=== PATIENT | female | born 1980 | race Caucasian/White ===

== ENCOUNTER 2025-05-07 06:00 | Day surgery (SDC) | payer OTHER ==
[2025-04-30 13:24] VITALS: BP 112/74
[~2025-05-07] VITALS: Ht 157.5 cm; Wt 64.0 kg
[~2025-05-07 06:00] MED LIST: B12 ACTIVE1000 MCG PO; CRESTOR40 MG PO; EMGALITY S120 MG/1 M SQ; KEVZARA200 MG/1.1; NEXIUM10 MG PO; NEXIUM40 M1 PO; PERCOCET 5/3251 TAB PO; RECTICARE30 GM TP; SINGULAIR10 MG PO; SULCRAFATE PO; ZYRTEC10 M3
[2025-05-07] MEDS ORDERED: CEFAZOLIN SODIUM 1,000 MG VIAL ONE (08:10)
[2025-05-07] MEDS ORDERED: POVIDONE-IODINE 118 ML BOTT TOP ONE (08:13)
[2025-05-07] MEDS ORDERED: CIPROFLOXACIN HCL 0.175 MG/DR DROPS OP ONE (09:00)
[2025-05-07] MEDS ORDERED: LIDOCAINE HCL 1%/EPINEPHRINE 20ML VIAL IJ ONE (09:00)
[2025-05-07] MEDS ORDERED: CIPROFLOXACIN2.5 ML OTIC (09:51)
[2025-05-07] MEDS ORDERED: CEPHALEXIN500 MG PO (09:52)
== END 2025-05-07 11:50 | disposition home or self-care (01) ==
LOC: CIR.AMB 06:00
PROVIDERS: ATTEND Otolaryngology Otology & Neurotology
DX: H80.92 Unspecified otosclerosis, left ear (principal); H90.12 Conductive hearing loss, unilateral, left ear, with unrestricted hearing on the contralateral side